=== PATIENT | female | born 1965 | race Caucasian/White ===

== ENCOUNTER 2017-10-29 12:11 | Emergency (ER) | payer OTHER ==
[2017-10-29 12:50] LABS: BASOPHILS % (AUTO) 0.8 %; EOSINOPHILS % (AUTO) 0.4 %; HGB - HEMOGLOBIN 12.8 g/dL (12.0-16.0); LYMPHOCYTES # (AUTO) 1.8 10^3/uL (1.5-3.5); LYMPHOCYTES % (AUTO) 34.1 %; MEAN CORPUSCULAR HEMOGLOBIN 29.8 pg (27.0-31.0); MEAN CORPUSCULAR HGB CONC 34.4 g/dL (32.0-36.0); MEAN CORPUSCULAR VOLUME 86.6 fL (81.0-99.0); MEAN PLATELET VOLUME 7.3 fL (7.9-10.8); MONOCYTES # (AUTO) 0.3 10^3/uL (0.0-1.0); MONOCYTES % (AUTO) 5.3 %; NEUTROPHILS # (AUTO) 3.1 10^3/uL (1.5-6.6); NEUTROPHILS % (AUTO) 59.4 %; PLT - PLATELET COUNT 258 10^3/uL (130-450); RED CELL DISTRIBUTION WIDTH 12.8 % (12.0-15.0); WHITE BLOOD COUNT 5.2 x10^3/uL (4.8-10.8)
[2017-10-29 13:06] LABS: ALBUMIN 4.5 g/dL (3.2-5.5); ALBUMIN/GLOBULIN RATIO 1.5 (1.0-2.2); BILIRUBIN,TOTAL 0.6 mg/dL (0.2-1.0); CALCIUM 9.2 mg/dL (8.5-10.3); CREATININE 0.8 mg/dL (0.4-1.0); TOTAL PROTEIN 7.6 g/dL (6.7-8.2)
--- NOTE | 2017-10-29 13:08 | XRAY Report ---
Reason: chest pain Procedure Date: 10/29/2017 Accession Number: [id number] / [id number] Procedure: XR - Chest 2 View X-Ray CPT Code: 28239 FULL RESULT: EXAM: CHEST RADIOGRAPHY EXAM DATE: 10/29/2017 12:59 PM. CLINICAL HISTORY: Chest pain. COMPARISON: None. TECHNIQUE: 2 views. FINDINGS: Lungs/Pleura: Clear. No effusion or pneumothorax. Mediastinum: Heart and mediastinal contours are unremarkable. The upper lobe vessels not distended. Other: None. IMPRESSION: Normal 2-view chest radiography. [facility]
[2017-10-29 14:15] VITALS: BP 118/73
--- NOTE | 2017-10-29 14:28 | ED Physician Documentation ---
PD HPI CHEST PAIN - Stated complaint Stated Complaint: CHEST PX - Chief complaint Chief Complaint: Cardiac - History obtained from History obtained from: Patient - History of Present Illness Timing - onset: Last night (She has had constant substernal nonradiating chest pressure since last night which is worse with deep breathing and twisting motions. It is not related to exertion. She had it all night and it continues today. It is mild and she is mostly worried because she is traveling tomorrow but has not traveled or had surgery recently. She denies pedal edema or calf pain. She had a stress test a few years ago for a different chest pain that was negative. She has no history of heart problems otherwise.) Review of Systems Constitutional: denies: Fever, Chills Cardiac: reports: Chest pain / pressure. denies: Palpitations, Pedal edema, Calf pain Respiratory: denies: Dyspnea, Cough GI: denies: Abdominal Pain, Nausea PD PAST MEDICAL HISTORY - Past Surgical History Past Surgical History: Yes Ortho: Spine surgery /[employer]: section - Present Medications Home Medications: Ambulatory Orders Medication Instructions Recorded Confirmed No Known Home Medications [No 10/29/17 10/29/17 Known Home Medications] - Allergies Allergies/Adverse Reactions: Allergies Allergy/AdvReac Type Severity Reaction Status Date / Time No Known Drug Allergies Allergy Verified 12/25/14 09:14 - Social History Does the pt smoke?: No Smoking Status: Never smoker Does the pt drink ETOH?: Yes Does the pt have substance abuse?: No - Immunizations Immunizations are current?: Yes PD ED PE NORMAL - Vitals Vital signs reviewed: Yes - General General: Alert and oriented X 3, No acute distress - HEENT HEENT: PERRL, EOMI - Neck Neck: Supple, no meningeal sign, No bony TTP - Cardiac Cardiac: RRR, No murmur, Other (Her chest pain is reproducible with palpation and pressure on the sternum.) - Respiratory Respiratory: No respiratory distress, Clear bilaterally - Abdomen Abdomen: Non tender - Back Back: No CVA TTP, No spinal TTP - Extremities Extremities: No edema, No calf tenderness / cord - Neuro Neuro: Alert and oriented X 3, Normal speech Results - Vitals Vitals: Vital Signs - 24 hr 10/29/17 10/29/17 12:13 14:14 Temperature 37.0 C Heart Rate 72 72 Respiratory 12 16 Rate Blood Pressure 136/81 H 118/73 O2 Saturation 15 L 96 Oxygen O2 Source Room air - EKG (time done) 1219 Rate: Rate (enter#) (64) Rhythm: NSR Reyno: Normal Intervals: Normal [place] QRS: Normal Ischemia: Normal ST segments Computer interpretation: Agree with computer - Labs Labs: Laboratory Tests 10/29/17 10/29/17 10/29/17 12:40 12:40 12:40 WBC 5.2 RBC 4.30 Hgb 12.8 Hct 37.3 MCV 86.6 MCH 29.8 MCHC 34.4 RDW 12.8 Plt Count 258 MPV 7.3 L Neut # (Auto) 3.1 Lymph # (Auto) 1.8 [place] # (Auto) 0.3 Eos # (Auto) 0.0 Baso # (Auto) 0.0 Absolute Nucleated RBC 0.00 Nucleated RBC % 0.0 Sodium 138 Potassium 4.1 Chloride 104 Carbon Dioxide 27 Anion Gap 7.0 BUN 14 Creatinine 0.8 Estimated GFR (MDRD) 75 L Glucose 97 Calcium 9.2 Total Bilirubin 0.6 AST 21 ALT 14 Alkaline Phosphatase 59 Troponin I < 0.04 Total Protein 7.6 Albumin 4.5 Globulin 3.1 Albumin/Globulin Ratio 1.5 Lipase 34 PD MEDICAL DECISION MAKING - ED course ED course: I considered pulmonary embolism in this patient. Clinically the pretest probability of pulmonary embolism is less than 15%. I applied to the PERC rules as follows: The patient's age is under 50, heart rate less than 100, oxygen saturation greater than 94%, the patient does not have a history of DVT or PE. Patient has no recent trauma or surgery. The patient has no hemoptysis. The patient is not on exogenous estrogens. The patient does not have clinical signs suggesting DVT. As such the patient ruled out for pulmonary embolism by PERC criteria. (I did confirm that the initial pulse oximetry noted by the nurse was erroneous) Heart score of 1. - Sepsis Event Vital Signs: Vital Signs - 24 hr 10/29/17 10/29/17 12:13 14:14 Temperature 37.0 C Heart Rate 72 72 Respiratory 12 16 Rate Blood Pressure 136/81 H 118/73 O2 Saturation 15 L 96 Oxygen O2 Source Room air Departure - Departure Disposition: 01 Home, Self Care Clinical Impression: Chest pain Qualifiers: Chest pain type: pleurodynia Qualified Code(s): R07.81 - Pleurodynia Condition: Good Record reviewed to determine appropriate education?: Yes Instructions: ED Chest Pain NonCardiac Comments: Talk with your doctor about a stress test and follow-up. Return if worse or symptoms change in any way.
== END 2017-10-29 14:42 | disposition home or self-care (01) ==
LOC: ED 12:11
DX: R07.81 Pleurodynia (principal)
CPT/HCPCS: 36415; 71046; 80053; 83690; 84484; 85025; 93005; 99282; 99283